=== PATIENT | female | born 1980 | race Hispanic/Latino ===

== ENCOUNTER → 2019-06-25 12:49 | Outpatient (CLI) | payer OTHER, SELFPAY ==
--- NOTE | 2019-06-25 | DI.MRI.S_ITS ---
PROCEDURE: MR TMJ WO CON INDICATIONS: Unspecified temporomandibular joint disorder, unsp TECHNIQUE: Axial T1 spin echo, coronal and sagittal PD fast spin echo through the temporomandibular joints, in both the closed- and open-mouth positions. COMPARISON: None. FINDINGS: Image quality: Excellent. Right: Joint is normally aligned on closed and open-mouth positioning. Articular disk is anteriorly displaced in the closed mouth position. The displaced articular disc does not reduce in the open mouth position. No bony erosions or osteophytes. No joint effusion. Left: Joint is normally aligned on closed and open-mouth positioning. Articular disk is displaced anteriorly in the closed mouth position. The displaced articular disc reduces in the open mouth position. No bony erosions or osteophytes. No joint effusion. IMPRESSION: 1. 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 2. Left temporomandibular joint articular disc anterior displacement without reduction in the open-mouth position. Dictated by: Amee Mason MD, PhD on 06/25/2019 at 16:36 Approved by: Amee Mason MD, PhD on 06/25/2019 at 16:58
== END ==
PROVIDERS: Visit Provider Dentist Oral and Maxillofacial Surgery
DX: M26.69 Other specified disorders of temporomandibular joint (principal)
CPT/HCPCS: 70336